=== PATIENT | female | born 1940 ===

== ENCOUNTER 2017-12-22 19:35 | Emergency (ER) | payer SELFPAY ==
[2017-12-22 19:36] VITALS: BMI 18.5
[2017-12-22 19:59] VITALS: O2SAT 97
--- NOTE | 2017-12-22 21:41 | ED PDOC ---
HPI: Psych/Substance Abuse Time Seen by Provider: 12/22/17 21:39 Chief Complaint (Nursing): Anxiety Chief Complaint (Provider): Anxiety History Per: Patient Onset/Duration Of Symptoms: Days Current Symptoms Are (Timing): Still Present Additional Complaint(s): 77 y/o female with a PMHx of dementia presents to the ED for psychiatric evaluation. Daughters reports of an increase of separation anxiety. Patient was prescribe Quetiapine by PMD for anxiety. Family is here requesting further evaluation. PMD: Tish Past Medical History Reviewed: Historical Data, Nursing Documentation, Vital Signs Vital Signs: Last Vital Signs Temp 98.1 F 12/22/17 19:58 Pulse 80 12/22/17 19:58 Resp 16 12/22/17 19:58 BP 154/74 H 12/22/17 19:58 Pulse Ox 97 12/22/17 19:58 - Medical History PMH: Dementia, HTN, Hypothyroidism - Surgical History Surgical History: No Surg Hx - Family History Family History: States: Unknown Family Hx - Home Medications Home Medications: Ambulatory Orders Medication Instructions Recorded Levothyroxine [Synthroid] 50 mcg PO DAILY 03/29/17 Telmisartan [Telmisartan] 80 mg PO DAILY 03/29/17 Docusate [Colace] 100 mg PO DAILY #7 cap 03/30/17 Famotidine [Pepcid] 20 mg PO BID #20 tab 03/30/17 Omeprazole 20 mg PO DAILY #30 capsule. 03/30/17 Cephalexin [Keflex] 500 mg PO TID #15 capsule 12/22/17 - Allergies Allergies/Adverse Reactions: Allergies Allergy/AdvReac Type Severity Reaction Status Date / Time No Known Allergies Allergy Verified 03/29/17 20:37 Review of Systems ROS Statement: Except As Marked, All Systems Reviewed And Found Negative Psych: Positive for: Other (Psychiatric evaluation) Physical Exam - Reviewed Nursing Documentation Reviewed: Yes Vital Signs Reviewed: Yes - Physical Exam Appears: Positive for: No Acute Distress (but tearful) Head Exam: Positive for: ATRAUMATIC Skin: Positive for: Normal Color, Warm Eye Exam: Positive for: Normal appearance Neck: Positive for: Normal, Painless ROM Cardiovascular/Chest: Negative for: Bradycardia, Tachycardia Respiratory: Negative for: Accessory Muscle Use, Respiratory Distress Extremity: Positive for: Normal ROM. Negative for: Deformity Neurologic/Psych: Positive for: Alert, Oriented. Negative for: Motor/Sensory Deficits - Laboratory Results Result Diagrams: 12/22/17 22:13 12/22/17 22:13 - ECG O2 Sat by Pulse Oximetry: 97 (RA) Pulse Ox Interpretation: Normal - Progress ED Course And Treament: ekg: nsr 81 bpm; no ectopy no acute chnages cxr: no acute disease Seen by crisis d/w Dr. Griffith Diagnosis Dementia d/c home with oupatient follow up arranged Medical Decision Making Medical Decision Making: Time: 2125 Plan: -- EKG -- CMP -- CBC with differentials -- CXR (PA&LAT) -- Urine Culture -- EKG Documentation -- Urinalysis Scribe Attestation: Documented by Aiden Diego, acting as a scribe for Juan Carlos Garcia PA-C. Provider Scribe Attestation: All medical record entries made by the Scribe were at my direction and personally dictated by me. I have reviewed the chart and agree that the record accurately reflects my personal performance of the history, physical exam, medical decision making, and the department course for this patient. I have also personally directed, reviewed, and agree with the discharge instructions and disposition. Disposition - Clinical Impression Clinical Impression: Anxiety, UTI (urinary tract infection) - Patient ED Disposition Is Patient to be Admitted: No - Disposition Disposition: Routine/Home Disposition Time: 23:33 Condition: FAIR Prescriptions: Cephalexin [Keflex] 500 mg PO TID #15 capsule Instructions: Dementia (Including Alzheimer Disease), Urinary Tract Infection, Adult (DC) Print Language: YORUBA
[2017-12-22 22:31] LABS: SQUAMOUS EPITHIAL 1 /hpf (0-5); URINE BACTERIA MOD (<OCC); URINE BILIRUBIN NEGATIVE (NEGATIVE); URINE BLOOD SMALL (NEGATIVE); URINE CLARITY CLOUDY (Clear); URINE COLOR YELLOW (YELLOW); URINE GLUCOSE (UA) NEG (Normal); URINE HYALINE CAST 0-2 /hpf (0-2); URINE LEUKOCYTE ESTERASE SMALL Leu/uL (Negative); URINE PROTEIN NEGATIVE (NEGATIVE); URINE UROBILINOGEN 0.2-1.0 mg/dL (0.2-1.0)
[2017-12-22 22:35] LABS: ALB/GLOB RATIO 1.3 (1.0-2.1); ALBUMIN 4.5 g/dL (3.5-5.0); ALT/SGPT 24 U/L (9-52); AST/SGOT 31 U/L (14-36); BLOOD UREA NITROGEN 23 mg/dl (7-17); GFR AFRICAN-AMERICAN > 60; GFR NON-AFRICAN AMERICAN > 60
[2017-12-22 22:39] LABS: BASO # 0.1 K/uL (0.0-0.2); BASO % 0.6 % (0.0-2.0); EOS % 0.5 % (0.0-4.0); HEMOGLOBIN 12.5 g/dL (12.0-16.0); LYMPH # 2.6 K/uL (1.0-4.3); LYMPH % 30.9 % (20.0-40.0); MEAN CELL VOLUME 80.1 fl (81.0-99.0); MEAN CORPUSCULAR HEMOGLOBIN 26.2 pg (27.0-31.0); MEAN CORPUSCULAR HGB CONC 32.8 g/dL (33.0-37.0); MEAN PLATELET VOLUME 7.8 fl (7.2-11.7); MONO # 0.9 K/uL (0.0-0.8); MONO % 10.3 % (0.0-10.0); NEUT # 4.9 K/uL (1.8-7.0); NEUT % 57.7 % (50.0-75.0); RBC 4.75 Mil/uL (3.80-5.20); RED CELL DISTRIBUTION WIDTH 13.6 % (11.5-14.5); WHITE BLOOD COUNT 8.5 K/uL (4.8-10.8)
[2017-12-22 23:38] VITALS: BP 135/71; PULSE 77; RESP 15; TEMP 98.5
--- NOTE | 2017-12-23 08:55 | RAD ---
HISTORY: COMPARISON: 03/29/2017. TECHNIQUE: Chest PA and lateral FINDINGS: LINES AND TUBES: None. LUNG AND PLEURA: The lungs are well inflated and clear. No pleural effusion or pneumothorax. HEART AND MEDIASTINUM: The heart is not enlarged. The hilar and mediastinal contours are within normal limits. SKELETAL STRUCTURES: The bony structures are within normal limits for the patient's age. VISUALIZED UPPER ABDOMEN: Normal. OTHER FINDINGS: None. IMPRESSION: No active pulmonary disease.
--- NOTE | 2017-12-23 09:07 | CARD ---
APPROVED REPORT Date of service: 12/22/2017 EKG Measurement Heart [id number] CT [id number] <Conclusion> Normal sinus rhythm Normal ECG
== END 2017-12-22 23:39 | disposition home or self-care (01) ==
LOC: H.ER 19:35
DX: F41.9 Anxiety disorder, unspecified (principal); N39.0 Urinary tract infection, site not specified; E03.9 Hypothyroidism, unspecified; F03.90 Unspecified dementia, unspecified severity, without behavioral disturbance, psychotic disturbance, mood disturbance, and anxiety; I10 Essential (primary) hypertension

== ENCOUNTER 2017-12-30 14:44 | Inpatient (IN) | payer MEDICAID, SELFPAY ==
[2017-12-30 14:44] VITALS: BMI 18.5
--- NOTE | 2017-12-30 15:37 | ED PDOC ---
HPI: Altered Mental Status Time Seen by Provider: 12/30/17 15:11 Chief Complaint (Nursing): Altered Mental Status Chief Complaint (Provider): Altered Mental Status History Per: Family (daughter, due to pt's dementia) Onset/Duration Of Symptoms: Days (x3 weeks) Current Symptoms Are (Timing): Still Present Additional Complaint(s): 77 year old female with a hx of dementia presents to the ED with daughter, who now has power of ecotherapist over pt, for evaluation of progressively worsening agitation over the last three weeks. As per daughter, patient was here last week for the same behavior and d/c, but the increased aggressive, what she describes as uncontrollable, behavior prompted another visit today. The daughter states that last night patient was unable to sleep and has intermittent complaints of abdominal pain, but they are not consistent. Currently, patient has no physical complaints. PMD: Tish Past Medical History Reviewed: Historical Data, Nursing Documentation, Vital Signs Vital Signs: Last Vital Signs Temp 98.4 F 12/30/17 15:03 Pulse 77 12/30/17 15:03 Resp 20 12/30/17 15:03 BP 150/79 12/30/17 15:03 Pulse Ox 97 12/30/17 15:03 - Medical History PMH: Dementia, HTN, Hypothyroidism Denies: Diabetes, Hepatitis, HIV, Seizures, Sexually Transmitted Disease - Surgical History Surgical History: No Surg Hx - Family History Family History: States: Unknown Family Hx - Living Arrangements Living Arrangements: With Family - Home Medications Home Medications: Ambulatory Orders Medication Instructions Recorded Levothyroxine [Synthroid] 50 mcg PO DAILY 03/29/17 Telmisartan [Telmisartan] 40 mg PO DAILY 03/29/17 Aspirin [Ecotrin] 81 mg PO DAILY 12/30/17 Mirtazapine [Remeron] 7.5 mg PO HS 12/30/17 Multivitamin [Multi-Vitamin Daily] 1 tab PO MWF 12/30/17 - Allergies Allergies/Adverse Reactions: Allergies Allergy/AdvReac Type Severity Reaction Status Date / Time No Known Allergies Allergy Verified 03/29/17 20:37 Review of Systems ROS Statement: Except As Marked, All Systems Reviewed And Found Negative Psych: Positive for: Other (agitation) Physical Exam - Reviewed Nursing Documentation Reviewed: Yes Vital Signs Reviewed: Yes - Physical Exam Appears: Positive for: Well, No Acute Distress Head Exam: Positive for: ATRAUMATIC, NORMOCEPHALIC Skin: Positive for: Warm, Dry Eye Exam: Positive for: EOMI, PERRL ENT: Positive for: Pharynx Is (clear). Negative for: Pharyngeal Erythema Neck: Positive for: Painless ROM, Supple Cardiovascular/Chest: Positive for: Regular Rate, Rhythm. Negative for: Murmur Respiratory: Positive for: Normal Breath Sounds. Negative for: Respiratory Distress Gastrointestinal/Abdominal: Positive for: Soft Back: Positive for: Normal Inspection. Negative for: Decreased ROM Extremity: Positive for: Normal ROM. Negative for: Deformity Lymphatic: Negative for: Adenopathy Neurologic/Psych: Positive for: Alert. Negative for: Motor/Sensory Deficits - Laboratory Results Result Diagrams: 12/30/17 16:03 12/30/17 16:03 - ECG O2 Sat by Pulse Oximetry: 97 (RA) Pulse Ox Interpretation: Normal Medical Decision Making Medical Decision Making: Time: 1523 Initial Impression: agitation and worsening behavior Ddx includes but is not limited to: r/o UTI from last visit Initial Plan: --EKG --Alcohol serum --CMP --Drug screen --Free T4 --T3 --TSH --Crisis eval --CBC with differential --Accucheck --Urinalysis Medically stable for inpatient psychiatry Evaluated by HONORIO Aden who d/w Dr Marte. Pt to be hospitalized to [facility] for stabilization Scribe Attestation: Documented by Rosalia Arboleda, acting as a scribe for Tanvi Macias MD. Provider Scribe Attestation: All medical record entries made by the Scribe were at my direction and personally dictated by me. I have reviewed the chart and agree that the record accurately reflects my personal performance of the history, physical exam, medical decision making, and the department course for this patient. I have also personally directed, reviewed, and agree with the discharge instructions and disposition. Disposition - Clinical Impression Clinical Impression: Dementia Counseled Patient/Family Regarding: Studies Performed, Diagnosis - Disposition Disposition Time: 17:00 Condition: STABLE - Pt Status Changed To: Hospital Disposition Of: Inpatient - Admit Certification Admit to Inpatient:: After my assessment, the patient will require hospitalization for at least two midnights. This is because of the severity of symptoms shown, intensity of services needed, and/or the medical risk in this patient being treated as an outpatient. - POA Present On Arrival: None
[2017-12-30 16:07] LABS: BASO # 0.1 K/uL (0.0-0.2); BASO % 0.8 % (0.0-2.0); EOS % 0.3 % (0.0-4.0); HEMOGLOBIN 12.3 g/dL (12.0-16.0); LYMPH # 2.2 K/uL (1.0-4.3); LYMPH % 31.9 % (20.0-40.0); MEAN CELL VOLUME 80.8 fl (81.0-99.0); MEAN CORPUSCULAR HEMOGLOBIN 26.2 pg (27.0-31.0); MEAN CORPUSCULAR HGB CONC 32.5 g/dL (33.0-37.0); MEAN PLATELET VOLUME 7.2 fl (7.2-11.7); MONO # 0.6 K/uL (0.0-0.8); MONO % 8.9 % (0.0-10.0); NEUT % 58.1 % (50.0-75.0); RBC 4.69 Mil/uL (3.80-5.20); RED CELL DISTRIBUTION WIDTH 13.8 % (11.5-14.5); WHITE BLOOD COUNT 6.9 K/uL (4.8-10.8)
[2017-12-30 16:37] LABS: ALB/GLOB RATIO 1.3 (1.0-2.1); ALBUMIN 4.6 g/dL (3.5-5.0); ALT/SGPT 26 U/L (9-52); AST/SGOT 34 U/L (14-36); BLOOD UREA NITROGEN 17 mg/dl (7-17); CALCIUM 10.4 mg/dL (8.4-10.2); GFR AFRICAN-AMERICAN > 60; GFR NON-AFRICAN AMERICAN > 60
[2017-12-30 17:03] LABS: T3 0.919 nmol/L (1.49-2.60)
[2017-12-30 17:54] LABS: SQUAMOUS EPITHIAL 2 /hpf (0-5); URINE BACTERIA MOD (<OCC); URINE BILIRUBIN NEGATIVE (NEGATIVE); URINE BLOOD SMALL (NEGATIVE); URINE CLARITY SLIGHTY-CLOUDY (Clear); URINE COLOR YELLOW (YELLOW); URINE GLUCOSE (UA) NEG (Normal); URINE LEUKOCYTE ESTERASE NEG Leu/uL (Negative); URINE PROTEIN NEGATIVE (NEGATIVE); URINE UROBILINOGEN 0.2-1.0 mg/dL (0.2-1.0)
[2017-12-30 18:11] LABS: BARBITURATES, UR NEGATIVE (NEGATIVE); BENZODIAZEPINES, UR NEGATIVE (NEGATIVE); OPIATES, UR NEGATIVE (NEGATIVE); PHENCYCLIDINE, UR NEGATIVE (NEGATIVE)
[2017-12-30 20:00] VITALS: O2SAT 100
[2017-12-30] MEDS ORDERED: Magnesium Hydroxide Susp 30 ml UD PO PRN (20:13)
[2017-12-30] MEDS ORDERED: Bismuth Subsalicylate 262 mg/15 ml Sus (240 ml) PO PRN (20:13)
--- NOTE | 2017-12-30 20:38 | PCM.BM ---
<RubenGurpreet - Last Filed: 12/30/17 20:34> Treatment Plan Problems - Problems identified on initial assessmt Agitated/agressive behavior Date Initiated: 12/30/17 Time Initiated: 20:35 Assessment reference: NA Status: Active Thought Process Date Initiated: 12/30/17 Time Initiated: 20:38 Assessment reference: NA Status: Active Altered Sleep Patterns Date Initiated: 12/30/17 Time Initiated: 20:38 Assessment reference: NA Status: Active Treatment assets and liabiliti Patient Assests: adapts well, cooperative, self-reliant, ADL independent, good support system, negotiates basic needs Patient Liabilities: medical problems - Milieu Protocol Maintain good personal hygiene: every shift Encourage regular showers, every shift Remind patient to perform daily oral care, every shift Assist patient to perform ADL's Maintain personal safety: daily Educate patient to report safety concerns to staff, daily Monitor environment for contraband/sharps Medication safety: Monitor for expected outcome, potential side effects: daily, Assess barriers to learning: daily, Assess readiness for medication education: daily <Mirian Crowley - Last Filed: 01/05/18 08:46> - Diagnosis (1) Dementia with behavioral disturbance Status: Acute Interventions: Medication management, Individual and group therapy, Psychoeducation 01/05/18 08:46 (2) Depressive disorder Status: Acute Interventions: Medication management, Individual and group therapy, Psychoeducation 01/05/18 08:46 <Drew Cifuentes - Last Filed: 01/06/18 12:11> Family Contact Family involvement: Family/SO is involved Family contact: Patient agrees to contact, Family has been contacted by patient , Telephone contact initiated by staff Family contact name: Holli - Daughter/POA Family contacted how many times per week?: 3 Family contact comment: Machine Ironer spoke with pt's daughter and POA (Holli [phone]), to discuss psychosocial history and precursors to admission. As per Holli pt has become increasingly agitated, aggressive, and unpredictable over the last 3 weeks. Holli reported that her mother has begun urinating on herself, not sleeping and suffering from "separation anxiety" when daughters attempt to leave. Holli denied prior psych hx and reported that pt was first diagnosed in 2016 by a neurologist in [place]. Please see psychosocial assessment for additional backgroung from conversation. Holli ended the call by asking that family would like pt to be referred to long-term placement. Machine Ironer discussed Long-term placements and the need for pt to be on a locked unit due to her bx disturbances and wandering. Machine Ironer explained that pt may need to be [place] out of county [place] minutes away and family was agreeable. Machine Ironer also asked that pt get records from past neurologist visit so that a timeline of decompensation can be established. Faxed reported from neurologist was received. - Goals for Treatment Patient goals for treatment: Pt is oriented X1 and is unable to goal set. Patient's family/SO goals for treatment: Pt's family would like pt to be placed in a LT [facility]. Discharge/Continuing Care - Education Needs Education Needs: Family Medication, Family Diagnosis/Disease Process, Family Coping Skills, Family Placement options, Family Community resources, Family Aftercare Safety Plan, Patient Medication, Patient Diagnosis/Disease Process, Patient Coping Skills, Patient Placement options, Patient Community resources, Patient Aftercare Safety Plan - Discharge Discharge Criteria: Tolerates medication w/o severe side effects, Free of agitation, Normal sleep pattern, Reduction of target symptoms Discharge to:: Home, With Family - Treatment Team Participation Discussed with Family/SO: Yes Was Patient/Family/SO present at Treatment Team Meeting: No
--- NOTE | 2017-12-30 21:30 | CP.PCM.CON ---
History of Present Illness - History of Present Illness History of Present Illness: Consult: Family medicine Team - 77 YO pleasant F w/ PMH of HTN, Hypothyroidism, Anxiety, separation anxiety disorder, and dementia has been admitted to [facility] and have been asked to see the patient. - Patients medical chart was reviewed and history was obtained from it since patient is a poor historian secondary to her dementia. Patient has been having repeated episodes of separation anxiety whenever her daughter leaves the house and is not around and becomes increasingly agitated over the past 3 weeks. The patients daughter who brought her to the ER , now has power of compliance attorney over patient. - As per daughter patient has not been sleeping and has been complaining of intermittent abdominal pain, but patients complaints are not consistent. Patient has also seen her PMD recently and has been treated for UTI with keflex. On 12/11 patient also had a UTI for which showed E Coli and was treated with macrobid which was sensitive to bacteria. - Today patient states she is doing great and has no complaints. When asked if she finished her Keflex course, she states she does not know of any UTI she had and is only taking vitamins. Denies any dysuria, abdominal pain, fever, chils, chest pain, SOB, N/V/D. PMH: Dementia, HTN, gastritis PSH: Hyterectomy 2003 FH: FH of Alzheimer in mother SH: was previously living with daughter. No alcohol or tobacco use PMD: Dr. Pozo Past Patient History - Past Social History Smoking Status: Never Smoked - CARDIAC Hx Cardiac Disorders: No Hx Hypertension: Yes - PULMONARY Hx Tuberculosis: No - NEUROLOGICAL HX Cerebrovascular Accident: No Hx Seizures: No - ENDOCRINE/METABOLIC Hx Hypothyroidism: Yes - HEMATOLOGICAL/ONCOLOGICAL Hx Cancer: No Hx Human Immunodeficiency Virus (HIV): No - INTEGUMENTARY Hx Dermatological Problems: No - MUSCULOSKELETAL/RHEUMATOLOGICAL Hx Musculoskeletal Disorders: No - GASTROINTESTINAL Hx Gastrointestinal Disorders: No - GENITOURINARY/GYNECOLOGICAL Hx Sexually Transmitted Disorders: No - PSYCHIATRIC Hx Psychophysiologic Disorder: No Hx Substance Use: No - SURGICAL HISTORY Hx Surgeries: No - ANESTHESIA Hx Anesthesia: No Meds Allergies/Adverse Reactions: Allergies Allergy/AdvReac Type Severity Reaction Status Date / Time No Known Allergies Allergy Verified 03/29/17 20:37 - Medications Medications: Current Medications Acetaminophen (Tylenol 325mg Tab) 650 mg PO Q4 PRN PRN Reason: Pain, moderate (4-7) Al Hydrox/Mg Hydrox/Simethicone (Maalox Plus 30 Ml) 30 ml PO Q4 PRN PRN Reason: Dyspepsia Aspirin (Ecotrin) 81 mg PO DAILY [facility] Bismuth Subsalicylate (Pepto-Bismol) 524 mg PO Q4 PRN PRN Reason: Diarrhea Enoxaparin Sodium (Lovenox) 30 mg SC DAILY [facility] PRN Reason: Protocol Home Med (Telmisartan [Telmisartan]) 40 mg PO DAILY [facility] Levothyroxine Sodium (Synthroid) 50 mcg PO DAILY@0630 [facility] Lorazepam (Ativan) 0.5 mg PO HS PRN PRN Reason: Insomnia Stop: 01/13/18 20:14 Lorazepam (Ativan) 0.5 mg PO Q6 PRN PRN Reason: Anixety/Agitation Stop: 01/13/18 20:14 Last Admin: 12/30/17 21:18 Dose: 0.5 mg Magnesium Hydroxide (Milk Of Magnesia) 30 ml PO HS PRN PRN Reason: Constipation Mirtazapine (Remeron) 7.5 mg PO HS [facility] Last Admin: 12/30/17 21:18 Dose: 7.5 mg Multivitamins/Minerals (Therapeutic-M Tab) 1 tab PO DAILY [facility] Physical Exam - Constitutional Appears: No Acute Distress - Head Exam Head Exam: NORMAL INSPECTION - Eye Exam Eye Exam: EOMI, Normal appearance, PERRL - ENT Exam ENT Exam: Mucous Membranes Moist - Respiratory Exam Respiratory Exam: Clear to Auscultation Bilateral, NORMAL BREATHING PATTERN. absent: Rhonchi, Wheezes - Cardiovascular Exam Cardiovascular Exam: REGULAR RHYTHM, +S1, +S2 - GI/Abdominal Exam GI & Abdominal Exam: Normal Bowel Sounds, Soft. absent: Tenderness - Extremities Exam Extremities exam: Positive for: normal inspection. Negative for: calf tenderness - Back Exam Back exam: absent: CVA tenderness (L), CVA tenderness (R) - Neurological Exam Neurological exam: Alert, CN II-XII Intact, Normal Gait Additional comments: [place] to person however not to place or time - Psychiatric Exam Psychiatric exam: Normal Affect - Skin Skin Exam: Normal Color, Warm Results - Vital Signs Recent Vital Signs: Last Vital Signs Temp 98.6 F 12/30/17 19:59 Pulse 87 12/30/17 19:59 Resp 18 12/30/17 19:59 BP 119/68 12/30/17 19:59 Pulse Ox 100 12/30/17 19:59 - Labs Result Diagrams: 12/30/17 16:03 12/30/17 16:03 Labs: Laboratory Results - last 24 hr 12/30/17 12/30/17 12/30/17 15:55 16:03 16:03 WBC 6.9 RBC 4.69 Hgb 12.3 Hct 37.9 MCV 80.8 L MCH 26.2 L MCHC 32.5 L RDW 13.8 Plt Count 315 MPV 7.2 Neut % (Auto) 58.1 Lymph % (Auto) 31.9 [place] % (Auto) 8.9 Eos % (Auto) 0.3 Baso % (Auto) 0.8 Neut # (Auto) 4.0 Lymph # (Auto) 2.2 [place] # (Auto) 0.6 Eos # (Auto) 0.0 Baso # (Auto) 0.1 Sodium 143 Potassium 5.2 H Chloride 102 Carbon Dioxide 30 Anion Gap 16 BUN 17 Creatinine 0.6 L Est GFR ( Amer) > 60 Est GFR (Non-Af Amer) > 60 POC Glucose (mg/dL) 110 Random Glucose 109 H Calcium 10.4 H Total Bilirubin 0.3 AST 34 ALT 26 Alkaline Phosphatase 59 Total Protein 8.0 Albumin 4.6 Globulin 3.5 Albumin/Globulin Ratio 1.3 Free T4 Total T3 0.919 L TSH 3rd Generation 1.58 Urine Color Urine Clarity Urine pH Ur Specific [place] Urine Protein Urine Glucose (UA) Urine Ketones Urine Blood Urine Nitrate Urine Bilirubin Urine Urobilinogen Ur Leukocyte Esterase Urine RBC (Auto) Urine Microscopic WBC Ur Squamous Epith Cells Urine Bacteria Urine Opiates Screen Urine Methadone Screen Ur Barbiturates Screen Ur Phencyclidine Scrn Ur Amphetamines Screen U Benzodiazepines Scrn U Oth Cocaine Metabols U Cannabinoids Screen Alcohol, Quantitative < 10 12/30/17 12/30/17 12/30/17 16:03 17:40 17:40 WBC RBC Hgb Hct MCV MCH MCHC RDW Plt Count MPV Neut % (Auto) Lymph % (Auto) [place] % (Auto) Eos % (Auto) Baso % (Auto) Neut # (Auto) Lymph # (Auto) [place] # (Auto) Eos # (Auto) Baso # (Auto) Sodium Potassium Chloride Carbon Dioxide Anion Gap BUN Creatinine Est GFR ( Amer) Est GFR (Non-Af Amer) POC Glucose (mg/dL) Random Glucose Calcium Total Bilirubin AST ALT Alkaline Phosphatase Total Protein Albumin Globulin Albumin/Globulin Ratio Free T4 1.42 Total T3 TSH 3rd Generation Urine Color Yellow Urine Clarity Slighty-cloudy Urine pH 6.0 Ur Specific [place] 1.013 Urine Protein Negative Urine Glucose (UA) Neg Urine Ketones Negative Urine Blood Small Urine Nitrate Negative Urine Bilirubin Negative Urine Urobilinogen 0.2-1.0 Ur Leukocyte Esterase Neg Urine RBC (Auto) 5 H Urine Microscopic WBC 3 Ur Squamous Epith Cells 2 Urine Bacteria Mod H Urine Opiates Screen Negative Urine Methadone Screen Negative Ur Barbiturates Screen Negative Ur Phencyclidine Scrn Negative Ur Amphetamines Screen Negative U Benzodiazepines Scrn Negative U Oth Cocaine Metabols Negative U Cannabinoids Screen Negative Alcohol, Quantitative Assessment & Plan - Assessment and Plan (Free Text) Assessment: 77 YO pleasant F w/ PMH of HTN, Hypothyroidism, Anxiety, separation anxiety disorder, and dementia 1) HTN - Losartan 50 mg - F/U with lipid panal and HBA1c 2) Hypothyroidism: Synthroid 50 mcg - TSH: 1.58, T3:.91, Free T4: 1.42 3) Hemolyzed blood work - Repeat and follow up : Hemolyzed K+: 5.2 4) Reccurent UTI - Recently treated UTI - U/A: Mod bacteria, Nitate -ve, leucocyte esterase -ve - Repeat Urine Culture and sensitivity - Currently asymptomatic as per patient 5) DVT prophylaxis - Lovenox 30 SC
[2017-12-31 06:59] LABS: IRON 79 ug/dL (37-170)
[2017-12-31 07:06] LABS: LDL CHOLESTEROL 109 mg/dL (0-129)
[2017-12-31 07:08] LABS: % IRON SATURATION 24 % (20-55); TOTAL IRON BINDING CAPACITY 325 ug/dL (250-450)
[2017-12-31 07:19] LABS: ALB/GLOB RATIO 1.3 (1.0-2.1); ALBUMIN 4.1 g/dL (3.5-5.0); ALT/SGPT 18 U/L (9-52); AST/SGOT 30 U/L (14-36); BLOOD UREA NITROGEN 25 mg/dl (7-17); CALCIUM 9.7 mg/dL (8.4-10.2); GFR AFRICAN-AMERICAN > 60; GFR NON-AFRICAN AMERICAN > 60; HDL CHOLESTEROL 59 MG/DL (30-70)
--- NOTE | 2017-12-31 07:22 | CARD ---
APPROVED REPORT Date of service: 12/30/2017 <Conclusion> Normal sinus rhythm Normal ECG
[2017-12-31 07:57] LABS: T4 7.87 ug/dl (5.5-11.0)
[2017-12-31 08:16] LABS: FERRITIN 36.9 ng/Ml (11.1-264.0)
[2017-12-31] MEDS: Levothyroxine 50 MCG TAB PO SCH (08:21)
[2017-12-31] MEDS: Multivitamin With Minerals Tab PO SCH (08:22)
[2017-12-31] MEDS ORDERED: TELMISARTAN 40 MG PO SCH (09:00)
[2017-12-31] MEDS ORDERED: Enoxaparin 30 mg Syringe SC SCH (09:00)
[2017-12-31] MEDS ORDERED: Patient's Own Med (Multivitamin [Multi-Vitamin Daily] 1 TAB) PO SCH (09:00)
--- NOTE | 2017-12-31 16:29 | PCM.PSYCH ---
Initial Psychiatric Evaluation - Initial Psychiatric Evaluation Patient's Reaction to Hospitalization: daughter has poa daughter History of Present Illness and Precipitating Events: pt. reports that came to hospital to do exercise and that these exercises were completed, denies having any known issues at home, reports cleans house and cooks. denies being angry or aggressive. pt denies having any issues with memory. pt. appears to be a poor historian. er notes as well as admitting rn notes reviewed and noted below. ER notes reveal: 77 year old female with a hx of dementia presents to the ED with daughter, who now has power of immigration attorney over pt, for evaluation of progressively worsening agitation over the last three weeks. As per daughter, patient was here last week for the same behavior and d/c, but the increased aggressive, what she describes as uncontrollable, behavior prompted another visit today. The daughter states that last night patient was unable to sleep and has intermittent complaints of abdominal pain, but they are not consistent. Currently, patient has no physical complaints. 3ns primary rn note ADMISSION NOTE: Received a 77y/o female from the Emergency Room on a stretcher accompanied by her two daughter and ER orthodontic laboratory technician.Pt is oriented only to herself pt thinks that she is her country during the interview "in [facility]" pt unable to state date, time and place. Pt has Power of immigration attorney with her two daughter on it Holli [phone] and Nohemi Heredia . Pt is South Korean speaking only, japanese interpreter was used even though pt has POA so Pt can understand the interview and for unit orientation of the pt, Molly [id number] and Noemí [id number]. Pt was brought in to the emergency by daughter due to significant decline and agitated behavior as per daughter. pt also becoming aggressive towards family member and fearful of being alone. "she is progressively declining but the last 3weeks we couldn't handle her" as per daughter. pt daughter also reporting that pt has poor sleep "she hasn't slept for 36hrs now". pt has a family history of depression and dementia pt was never really diagnosed as per daughter. this is the pts first psychiatric admission, pt is seeing Dr. Ruiz at the [facility]. Pt daughter reports that pt has a medical history of HTN, Hypothyroidism, and Hx. of kidney stones, DM but it was being controlled with diet. pt daughter also report that last week her mother just finished her antibiotic treatment for urinary tract infection. Pt denies any A/V hallucination, denies delusions, denies SI or intent. pt belongings are checked for contraband, nothing was found. Pt initial V/S BP:135/ 75 VT:85 O2SAT 99% @ room air RR:18 T:97.8. Dr Marte was notified about pt admission orders are given, and Dr. Renee called for medical consult [id number] Pt was seen by Dr. Renee. Pt was oriented to the unit and made comfortable at room 307-2. will continue to monitor. records received fron dr Belinda Bolivar MD neurologist saw pt [id number] with impression being Memory change recommendation included brain mri scan and new medications were discussed and deferred Current Medications: Active Medications Generic Name Dose Route Start Last Admin Trade Name Freq PRN Reason Stop Dose Admin Acetaminophen 650 mg 12/30/17 20:13 Tylenol 325mg Tab PO Q4 PRN Pain, moderate (4-7) Al Hydrox/Mg Hydrox/Simethicone 30 ml 12/30/17 20:13 Maalox Plus 30 Ml PO Q4 PRN Dyspepsia Aspirin 81 mg 12/31/17 09:00 12/31/17 08:21 Ecotrin PO 81 mg DAILY [facility] Administration Bismuth Subsalicylate 524 mg 12/30/17 20:13 Pepto-Bismol PO Q4 PRN Diarrhea Enoxaparin Sodium 30 mg 12/31/17 09:00 12/31/17 08:21 Lovenox SC 30 mg DAILY [facility] Administration Protocol Levothyroxine Sodium 50 mcg 12/31/17 06:30 12/31/17 08:21 Synthroid PO 50 mcg DAILY@0630 [facility] Administration Lorazepam 0.5 mg 12/30/17 20:13 Ativan PO 01/13/18 20:14 HS PRN Insomnia Lorazepam 0.5 mg 12/30/17 20:13 12/30/17 21:18 Ativan PO 01/13/18 20:14 0.5 mg Q6 PRN Administration Anixety/Agitation Losartan Potassium 50 mg 12/31/17 09:00 12/31/17 08:20 Cozaar PO 50 mg DAILY [facility] Administration Magnesium Hydroxide 30 ml 12/30/17 20:13 Milk Of Magnesia PO HS PRN Constipation Mirtazapine 7.5 mg 12/30/17 22:00 12/30/17 21:18 Remeron PO 7.5 mg HS [facility] Administration Multivitamins/Minerals 1 tab 12/31/17 09:00 12/31/17 08:22 Therapeutic-M Tab PO 1 tab DAILY [facility] Administration Past Psychiatric History - Past Psychiatric History Prior Professional Help: notes reveal this is pt.'s first admission Prior Psychiatric Treatment: pt. treated by pmd in [facility] Pertinent Medical Hx (Current Medical&Sleep Prob, Allergies): Allergies Allergy/AdvReac Type Severity Reaction Status Date / Time No Known Allergies Allergy Verified 03/29/17 20:37 Levothyroxine [Synthroid] 50 mcg PO DAILY 03/29/17 Telmisartan [Telmisartan] 40 mg PO DAILY 03/29/17 Aspirin [Ecotrin] 81 mg PO DAILY 12/30/17 Mirtazapine [Remeron] 7.5 mg PO HS 12/30/17 Multivitamin [Multi-Vitamin Daily] 1 tab PO MWF 12/30/17 Review of Systems - Psychiatric Psychiatric: Abnormal Sleep Pattern, Anxiety, Confusion, Irritability Additional comments: reported aggression towards family, fear of being alone Mental Status Examination - Personal Presentation Personal Presentation: Looks stated age - Affect Affect: Constricted - Motor Activity Motor Activity: Calm, Psychomotor Retardation - Reliability in Providing Information Reliability in Providing Information: Poor, due to cognitve impairment - Speech Speech: Disorganized - Mood Mood: Anxious - Cognitive Functions Orientation: Person, Place Sensorium: Alert Attention/Concentration: Easily distracted Judgement: Imparied, as evidence by: Other Memory: Recent impaired, as evidence by: Inability to recall events of the day - Risk Risk: Diminished functioning Additional comments: self care - Strength & Assets Inventory Strength & Assets Inventory: Family support (pt has poa two daughters ) - Limitations Limitations: Decreased memory, recent DSM 5 DX - DSM 5 DSM 5 Diagnosis: dementia with behavioral disturbances depression insomnia - Recommended/Plan of Treatment Treatment Recommendations and Plan of Treatment: inpt adm per attending vital signs clinical observation per protocol and per clinical status prns per unit protocol hospitalist consult start pt on remeron (mirtazepine) 7.5mg po hs psychology consult dr delatorre dementia screening access to prn samoan speaking staff and or use of translation services discharge planning in progress Projected ELOS: 7-10 days Prognosis: guarded Discharge Plan and Discharge Criteria: safety - Smoking Cessation Smoking Cessation Initiated: No Reason for not providing: pt defers
[2018-01-01] MEDS: Levothyroxine 50 MCG TAB PO SCH (06:18)
[2018-01-01] MEDS: Multivitamin With Minerals Tab PO SCH (08:48)
--- NOTE | 2018-01-01 17:19 | PCM.PYCHPN ---
Psychiatric Progress Note - Psychiatric Progress Note Patient seen today, length of contact: chart reviewed case discussed with team Patient Chief Complaint: sad does not know why they asked to leave her home to live with another sister pt initially believed she was in [facility] then spoke of being in [place] reminded is in [place]. pt is seen seated in milieu tearful at times does not recall why she was brought here denies known issues at home or family. Problems Identified/Issues Discussed: alteration in mood alteration in self care alteration in cognition Medical Problems: per chart Diagnostic Results: continues to be sad crying at j carlos DSM 5 Symptoms Update: alteration in mood tearful sad Medication Change: Yes (increase mirtazepine to 15mg po HS) Medical Record Reviewed: Yes Consults ordered or reviewed: pt seen by hospitalist Mental Status Examination - Cognitive Function Orientation: Person, Place - Mood Mood: Depressed, Anxious - Affect Affect: Constricted - Homicidal Ideation Homicidal Ideation: No Goal/Treatment Plan - Goal/Treatment Plan Progress Toward Problem(s) and Goals/Treatment Plan: inpt milieu therapy vital signs clinical observation per protocol and per clinical status prns per unit protocol hospitalist consult start pt on remeron (mirtazepine) 15 mg po hs psychology consult dr delatorre dementia screening access to prn italian speaking staff and or use of translation services discharge planning in progress Estimated Date of D/C: 01/06/18 - Smoking Cessation Smoking Cessation Initiated: No Reason for not providing: pt defers
[2018-01-02] MEDS: Levothyroxine 50 MCG TAB PO SCH (08:58)
[2018-01-02] MEDS: Multivitamin With Minerals Tab PO SCH (08:58)
--- NOTE | 2018-01-02 13:07 | CP.PCM.CON ---
History of Present Illness - History of Present Illness History of Present Illness: PT is a 77 year old female admitted to [facility] and referred to the marketing copywriter for evaluation. Patient administered the Dementia Rating scale. Deficits in Attention, Conceptulation, Memory, and Initiation were evident. Pt's Construction skills fell within normal limits. PT positive for Confabulation and verbalizations inconsistent with the questions at hand. Overall 100 Memory 12 (Deficient) construction 4 conceptualization 20> Initiation 28> Attention 26> Significant deficits noted on this evaluation Past Patient History - Past Social History Smoking Status: Never Smoked - CARDIAC Hx Cardiac Disorders: No Hx Hypertension: Yes - PULMONARY Hx Tuberculosis: No - NEUROLOGICAL HX Cerebrovascular Accident: No Hx Seizures: No - ENDOCRINE/METABOLIC Hx Hypothyroidism: Yes - HEMATOLOGICAL/ONCOLOGICAL Hx Cancer: No Hx Human Immunodeficiency Virus (HIV): No - INTEGUMENTARY Hx Dermatological Problems: No - MUSCULOSKELETAL/RHEUMATOLOGICAL Hx Musculoskeletal Disorders: No - GASTROINTESTINAL Hx Gastrointestinal Disorders: No - GENITOURINARY/GYNECOLOGICAL Hx Sexually Transmitted Disorders: No - PSYCHIATRIC Hx Psychophysiologic Disorder: No Hx Substance Use: No - SURGICAL HISTORY Hx Surgeries: No - ANESTHESIA Hx Anesthesia: No Meds Allergies/Adverse Reactions: Allergies Allergy/AdvReac Type Severity Reaction Status Date / Time No Known Allergies Allergy Verified 03/29/17 20:37 - Medications Medications: Current Medications Acetaminophen (Tylenol 325mg Tab) 650 mg PO Q4 PRN PRN Reason: Pain, moderate (4-7) Al Hydrox/Mg Hydrox/Simethicone (Maalox Plus 30 Ml) 30 ml PO Q4 PRN PRN Reason: Dyspepsia Aspirin (Ecotrin) 81 mg PO DAILY [facility] Last Admin: 01/02/18 08:58 Dose: 81 mg Bismuth Subsalicylate (Pepto-Bismol) 524 mg PO Q4 PRN PRN Reason: Diarrhea Levothyroxine Sodium (Synthroid) 50 mcg PO DAILY@0630 [facility] Last Admin: 01/02/18 08:58 Dose: 50 mcg Lorazepam (Ativan) 0.5 mg PO HS PRN PRN Reason: Insomnia Stop: 01/13/18 20:14 Last Admin: 12/31/17 22:09 Dose: 0.5 mg Lorazepam (Ativan) 0.5 mg PO Q6 PRN PRN Reason: Anixety/Agitation Stop: 01/13/18 20:14 Last Admin: 01/01/18 23:18 Dose: 0.5 mg Losartan Potassium (Cozaar) 50 mg PO DAILY [facility] Last Admin: 01/02/18 08:58 Dose: 50 mg Magnesium Hydroxide (Milk Of Magnesia) 30 ml PO HS PRN PRN Reason: Constipation Mirtazapine (Remeron) 15 mg PO HS [facility] Last Admin: 01/01/18 21:04 Dose: 15 mg Multivitamins/Minerals (Therapeutic-M Tab) 1 tab PO DAILY [facility] Last Admin: 01/02/18 08:58 Dose: 1 tab Results - Vital Signs Recent Vital Signs: Last Vital Signs Temp 97.7 F 01/02/18 06:00 Pulse 65 01/02/18 08:58 Resp 18 01/02/18 06:00 BP 120/69 01/02/18 08:58 Pulse Ox 100 12/30/17 19:59 - Labs Result Diagrams: 12/30/17 16:03 12/31/17 05:45
--- NOTE | 2018-01-02 16:07 | CP.PCM.PN ---
Subjective - Date & Time of Evaluation Date of Evaluation: 01/02/18 Time of Evaluation: 10:00 - Subjective Subjective: Patient seen and examined at bedside. Reports she feels well. Denies dysuria, fevers, chills, chest pain or dizziness. Denies urinary frequency. Objective - Vital Signs/Intake and Output Vital Signs (last 24 hours): Temp Pulse Resp BP Pulse Ox 97.7 F 65 18 120/69 100 01/02/18 06:00 01/02/18 08:58 01/02/18 06:00 01/02/18 08:58 12/30/17 19:59 - Medications Medications: Current Medications Acetaminophen (Tylenol 325mg Tab) 650 mg PO Q4 PRN PRN Reason: Pain, moderate (4-7) Al Hydrox/Mg Hydrox/Simethicone (Maalox Plus 30 Ml) 30 ml PO Q4 PRN PRN Reason: Dyspepsia Aspirin (Ecotrin) 81 mg PO DAILY [facility] Last Admin: 01/02/18 08:58 Dose: 81 mg Bismuth Subsalicylate (Pepto-Bismol) 524 mg PO Q4 PRN PRN Reason: Diarrhea Levothyroxine Sodium (Synthroid) 50 mcg PO DAILY@0630 [facility] Last Admin: 01/02/18 08:58 Dose: 50 mcg Lorazepam (Ativan) 0.5 mg PO HS PRN PRN Reason: Insomnia Stop: 01/13/18 20:14 Last Admin: 12/31/17 22:09 Dose: 0.5 mg Lorazepam (Ativan) 0.5 mg PO Q6 PRN PRN Reason: Anixety/Agitation Stop: 01/13/18 20:14 Last Admin: 01/02/18 15:40 Dose: 0.5 mg Losartan Potassium (Cozaar) 50 mg PO DAILY [facility] Last Admin: 01/02/18 08:58 Dose: 50 mg Magnesium Hydroxide (Milk Of Magnesia) 30 ml PO HS PRN PRN Reason: Constipation Mirtazapine (Remeron) 15 mg PO HS [facility] Last Admin: 01/01/18 21:04 Dose: 15 mg Multivitamins/Minerals (Therapeutic-M Tab) 1 tab PO DAILY [facility] Last Admin: 01/02/18 08:58 Dose: 1 tab - Labs Labs: 12/30/17 16:03 12/31/17 05:45 - Constitutional Appears: No Acute Distress - Head Exam Head Exam: ATRAUMATIC, NORMOCEPHALIC - Eye Exam Eye Exam: EOMI Pupil Exam: PERRL - ENT Exam ENT Exam: Mucous Membranes Moist - Neck Exam Neck Exam: Full ROM - Respiratory Exam Respiratory Exam: Clear to Ausculation Bilateral, NORMAL BREATHING PATTERN. absent: Rales, Rhonchi - Cardiovascular Exam Cardiovascular Exam: REGULAR RHYTHM, +S1, +S2 - GI/Abdominal Exam GI & Abdominal Exam: Soft, Normal Bowel Sounds. absent: Tenderness - Extremities Exam Extremities Exam: Full ROM. absent: Pedal Edema - Back Exam Back Exam: absent: CVA tenderness (L), CVA tenderness (R) - Neurological Exam Neurological Exam: Alert, Awake, CN II-XII Intact, Normal Gait - Psychiatric Exam Psychiatric exam: Normal Affect, Normal Mood - Skin Skin Exam: Dry, Intact, Warm Assessment and Plan - Assessment and Plan (Free Text) Assessment: 77 yr old F admitted for dementia with behavioral disturbances/depression and insomnia with PMHx of HTN, Hypothyroidism, Anxiety, separation anxiety disorder , and dementia. 1) Hypertension -chronic, controlled - continue home medication: Losartan 50 mg PO QD - 12/31/17: lipid panel: triglycerides 66, chol 207, LDL 109, HDL 59,, HbA1c 6.2 2) Hypothyroidism -chronic, controlled -continue home medications: Synthroid 50 mcg PO QD -TSH: 1.58, T3:.91, Free T4: 1.42 3) Dementia with behavioral disturbances, Depression, Insomnia -acute on chronic -management per psych team: patient started on Mirtazepine 15mg PO QHS -Lorazepam 0.5 mg PO QHS PRN insomnia, Lorazepam 0.5 PO Q6 PRN anxiety/agitation 4) Hemolyzed blood work - resolved, CMP 12/31/17 wnl 5) Hx Reccurent UTI - asymptomatic, recently treated UTI - 12/30/17: U/A: Mod bacteria, negative for Nitate, negative for leukocyte esterase - 12/31/17: gram negative shyanne 50k-100k -no antibotics at this time, will monitor for signs or symptoms 6) DVT prophylaxis - SCD's, patient is ambulating
--- NOTE | 2018-01-02 17:35 | PCM.PYCHPN ---
Psychiatric Progress Note - Psychiatric Progress Note Patient seen today, length of contact: chart reviewed case discussed with team Patient Chief Complaint: pt was reportedly anxious today not responding to verbal de escalation prn lorazepam administered with increased relaxation. pt was seen by dr. delatorre and report indicates pt. with significant cognitive impairment. pt. seen by family medicine today. pt. nurse practitioner per diem per records discussed status and potential discharge planning with patient's daughter. pt. adherent with tx.. somewhat keeps to self at times, tearful at times but is redirectable and supported. i Problems Identified/Issues Discussed: alteration in mood alteration in self care alteration in cognition Medical Problems: per chart Diagnostic Results: continues to be sad crying at j carlos DSM 5 Symptoms Update: depressed tearful anxious received prn anxiolytic Medication Change: No Medical Record Reviewed: Yes Consults ordered or reviewed: pt seen by family medicine Mental Status Examination - Cognitive Function Orientation: Person, Place Attention: Poor Concentration: Poor Association: Loose Fund of Knowledge: Poor Decription of patient's judgement and insights: impaired - Mood Mood: Depressed, Anxious - Affect Affect: Constricted - Speech Speech: Soft Additional comments: Speaks Mostly Romansh - Homicidal Ideation Homicidal Ideation: No Goal/Treatment Plan - Goal/Treatment Plan Need for Continued Stay: Severe functional impairment Progress Toward Problem(s) and Goals/Treatment Plan: inpt milieu therapy vital signs clinical observation per protocol and per clinical status prns per unit protocol pt seen by family medicine psychology consult dr delatorre appreciated access to prn vincentian speaking staff and or use of translation services discharge planning in progress Estimated Date of D/C: 01/06/18 - Smoking Cessation Smoking Cessation Initiated: No Reason for not providing: deferred
[2018-01-02] MEDS: Alum-Mag Hydrox-Simethicone Susp (30 mL) PO PRN (17:42)
[2018-01-03] MEDS: Levothyroxine 50 MCG TAB PO SCH (06:32)
[2018-01-03 07:20] LABS: BASO # 0.1 K/uL (0.0-0.2); BASO % 1.1 % (0.0-2.0); EOS # 0.1 K/uL (0.0-0.7); EOS % 1.3 % (0.0-4.0); HEMOGLOBIN 11.1 g/dL (12.0-16.0); LYMPH # 2.5 K/uL (1.0-4.3); LYMPH % 40.2 % (20.0-40.0); MEAN CELL VOLUME 81.4 fl (81.0-99.0); MEAN CORPUSCULAR HEMOGLOBIN 26.2 pg (27.0-31.0); MEAN CORPUSCULAR HGB CONC 32.2 g/dL (33.0-37.0); MEAN PLATELET VOLUME 7.7 fl (7.2-11.7); MONO # 0.7 K/uL (0.0-0.8); MONO % 11.5 % (0.0-10.0); NEUT # 2.8 K/uL (1.8-7.0); NEUT % 45.9 % (50.0-75.0); NRBC % 0.1 % (0.0-0.0); RBC 4.24 Mil/uL (3.80-5.20); RED CELL DISTRIBUTION WIDTH 13.7 % (11.5-14.5); WHITE BLOOD COUNT 6.1 K/uL (4.8-10.8)
[2018-01-03 07:32] LABS: BLOOD UREA NITROGEN 27 mg/dl (7-17); CALCIUM 8.6 mg/dL (8.4-10.2); GFR AFRICAN-AMERICAN > 60; GFR NON-AFRICAN AMERICAN > 60
[2018-01-03] MEDS: Multivitamin With Minerals Tab PO SCH (08:33)
--- NOTE | 2018-01-03 12:14 | PCM.PYCHPN ---
Psychiatric Progress Note - Psychiatric Progress Note Patient seen today, length of contact: chart reviewed case discussed with team Patient Chief Complaint: pt. seen seated in milieu, appears to be reading a book, juanita thakur staff ( this sign writer letterer or painter), staff report pt somewhat calmer, continues to not be aware of why was admitted, staff report pt. has been adherent with treatment. reportedly family visited yesterday, pt. reportedly bathed. Problems Identified/Issues Discussed: alteration in mood alteration in self care alteration in cognition Medical Problems: per chart Diagnostic Results: pt anxious at times appears to be afraid to be alone DSM 5 Symptoms Update: improving mood, continues to be confused Medication Change: No Medical Record Reviewed: Yes Consults ordered or reviewed: [facility] Mental Status Examination - Cognitive Function Orientation: Person, Place Attention: Poor Concentration: Poor Association: Loose Fund of Knowledge: Poor Decription of patient's judgement and insights: impaired - Mood Mood: Depressed, Anxious - Affect Affect: Constricted - Speech Speech: Soft - Homicidal Ideation Homicidal Ideation: No Goal/Treatment Plan - Goal/Treatment Plan Need for Continued Stay: Remain at risks for inpatient hospitalization, Severe functional impairment Progress Toward Problem(s) and Goals/Treatment Plan: inpt milieu therapy vital signs clinical observation per protocol and per clinical status prns per unit protocol pt seen by family medicine psychology consult dr delatorre appreciated access to prn bulgarian speaking staff and or use of translation services discharge planning in progress Estimated Date of D/C: 01/06/18 - Smoking Cessation Smoking Cessation Initiated: No Reason for not providing: defers
[2018-01-04] MEDS: Levothyroxine 50 MCG TAB PO SCH (06:05)
[2018-01-04] MEDS: Multivitamin With Minerals Tab PO SCH (09:45)
--- NOTE | 2018-01-04 19:04 | PCM.PYCHPN ---
Psychiatric Progress Note - Psychiatric Progress Note Patient seen today, length of contact: chart reviewed case discussed with team Patient Chief Complaint: pt. seen seated in milieu, appears to be reading a book, juanita thakur staff ( this film writer), staff report pt somewhat calmer, continues to not be aware of why was admitted, staff report pt. has been adherent with treatment. reportedly family visited yesterday, pt. reportedly bathed. Problems Identified/Issues Discussed: alteration in mood alteration in self care alteration in cognition Medical Problems: per chart Diagnostic Results: pt anxious at times appears to be afraid to be alone DSM 5 Symptoms Update: confused baseline mood in terms of depression anxiety Medication Change: Yes (start aricept 5mg po 5pm and namenda 5mg po am) Medical Record Reviewed: Yes Consults ordered or reviewed: pt seen by [facility] practice Mental Status Examination - Cognitive Function Orientation: Person, Place Attention: Poor Concentration: Poor Association: Loose Fund of Knowledge: WNL Decription of patient's judgement and insights: impaired - Mood Mood: Depressed, Anxious - Affect Affect: Constricted - Speech Speech: Soft - Formal Thought Process Formal Thought Process: Loosening of associations, Circumstantial - Homicidal Ideation Homicidal Ideation: No Goal/Treatment Plan - Goal/Treatment Plan Need for Continued Stay: Remain at risks for inpatient hospitalization, Severe functional impairment Progress Toward Problem(s) and Goals/Treatment Plan: inpt milieu therapy vital signs clinical observation per protocol and per clinical status prns per unit protocol pt seen by family medicine psychology consult dr delatorre appreciated start aricept 5mg po 5pm and namenda 5mg po 9am access to prn [place] islander speaking staff and or use of translation services discharge planning in progress Estimated Date of D/C: 01/06/18 - Smoking Cessation Smoking Cessation Initiated: No Reason for not providing: pt defers
[2018-01-05] MEDS: Levothyroxine 50 MCG TAB PO SCH (06:37)
--- NOTE | 2018-01-05 07:33 | CP.PCM.PN ---
Subjective - Date & Time of Evaluation Date of Evaluation: 01/05/18 Time of Evaluation: 07:33 - Subjective Subjective: Patient seen and examined at bedside. Awake, alert, cooperative. Reports pain in left ear. Denies drainage from left ear, fever, chills, nausea, vomiting or chest pain. Reports normal urine output, denies dysuria or hematuria. Objective - Vital Signs/Intake and Output Vital Signs (last 24 hours): Temp Pulse Resp BP Pulse Ox 97.8 F 89 18 128/87 100 01/05/18 06:00 01/05/18 06:00 01/05/18 06:00 01/05/18 06:00 12/30/17 19:59 - Medications Medications: Current Medications Acetaminophen (Tylenol 325mg Tab) 650 mg PO Q4 PRN PRN Reason: Pain, moderate (4-7) Al Hydrox/Mg Hydrox/Simethicone (Maalox Plus 30 Ml) 30 ml PO Q4 PRN PRN Reason: Dyspepsia Last Admin: 01/02/18 17:42 Dose: 30 ml Aspirin (Ecotrin) 81 mg PO DAILY [facility] Last Admin: 01/04/18 09:44 Dose: 81 mg Bismuth Subsalicylate (Pepto-Bismol) 524 mg PO Q4 PRN PRN Reason: Diarrhea Levothyroxine Sodium (Synthroid) 50 mcg PO DAILY@0630 [facility] Last Admin: 01/05/18 06:37 Dose: 50 mcg Lorazepam (Ativan) 0.5 mg PO HS PRN PRN Reason: Insomnia Stop: 01/13/18 20:14 Last Admin: 12/31/17 22:09 Dose: 0.5 mg Lorazepam (Ativan) 0.5 mg PO Q6 PRN PRN Reason: Anixety/Agitation Stop: 01/13/18 20:14 Last Admin: 01/03/18 15:55 Dose: 0.5 mg Losartan Potassium (Cozaar) 50 mg PO DAILY [facility] Last Admin: 01/04/18 11:53 Dose: 50 mg Magnesium Hydroxide (Milk Of Magnesia) 30 ml PO HS PRN PRN Reason: Constipation Last Admin: 01/04/18 20:13 Dose: 30 ml Mirtazapine (Remeron) 15 mg PO [facility] Last Admin: 01/04/18 21:01 Dose: 15 mg Multivitamins/Minerals (Therapeutic-M Tab) 1 tab PO DAILY [facility] Last Admin: 01/04/18 09:45 Dose: 1 tab - Labs Labs: 01/03/18 05:30 01/03/18 05:30 - Constitutional Appears: No Acute Distress - Head Exam Head Exam: ATRAUMATIC, NORMOCEPHALIC - Eye Exam Eye Exam: EOMI, PERRL - ENT Exam ENT Exam: Mucous Membranes Moist, Normal External Ear Exam, Normal Oropharynx, TM's Normal Bilaterally - Neck Exam Neck Exam: Full ROM. absent: Lymphadenopathy - Respiratory Exam Respiratory Exam: Clear to Ausculation Bilateral, NORMAL BREATHING PATTERN - Cardiovascular Exam Cardiovascular Exam: REGULAR RHYTHM, +S1, +S2 - GI/Abdominal Exam GI & Abdominal Exam: Soft, Normal Bowel Sounds - Extremities Exam Extremities Exam: Full ROM. absent: Pedal Edema - Neurological Exam Neurological Exam: Alert, Awake, CN II-XII Intact, Normal Gait - Psychiatric Exam Psychiatric exam: Normal Affect, Normal Mood - Skin Skin Exam: Dry, Normal Color, Warm Assessment and Plan - Assessment and Plan (Free Text) Assessment: 77 yr old F admitted for dementia with behavioral disturbances/depression and insomnia with PMHx of HTN, Hypothyroidism, Anxiety, separation anxiety disorder , and dementia. 1) Left ear pain -otoscope exam normal -no periauricular tenderness, afebrile -Tylenol 650mg PO for pain 2) Hypertension -chronic, controlled - continue home medication: Losartan 50 mg PO QD - 12/31/17: lipid panel: triglycerides 66, chol 207, LDL 109, HDL 59,, HbA1c 6.2 3) Hypothyroidism -chronic, controlled -continue home medications: Synthroid 50 mcg PO QD -TSH: 1.58, T3:.91, Free T4: 1.42 4) Dementia with behavioral disturbances, Depression, Insomnia -acute on chronic -management per psych team: start Aricept 5mg PO Q5PM, Namenda 5mg PO QAM, continue Mirtazepine 15mg PO QHS -Lorazepam 0.5 mg PO QHS PRN insomnia, Lorazepam 0.5 PO Q6 PRN anxiety/agitation 5) Hx Reccurent UTI - asymptomatic, recently treated UTI - 12/30/17: U/A: Mod bacteria, negative for Nitate, negative for leukocyte esterase - 12/31/17: gram negative shyanne 50k-100k -no antibotics at this time, will monitor for signs or symptoms 6) DVT prophylaxis - SCD's, patient is ambulating
[2018-01-05] MEDS: Multivitamin With Minerals Tab PO SCH (08:21)
--- NOTE | 2018-01-05 08:46 | PCM.PYCHPN ---
Psychiatric Progress Note - Psychiatric Progress Note Patient seen today, length of contact: Patient evaluated, chart reviewed, case discussed w/ team Patient Chief Complaint: "I'm fine." Problems Identified/Issues Discussed: Patient A x O x 1 due to chronic deficits in dementia. She is currently calm and cooperative w/o behavioral disturbances. She reports that her mood is improving and that she does not currently feel depressed. SW to discuss disposition with family today. Medication Change: No Medical Record Reviewed: Yes Consults ordered or reviewed: Medicine consult Mental Status Examination - Cognitive Function Orientation: Person Memory: Impaired Attention: Poor Concentration: Poor Association: Loose Fund of Knowledge: Poor Decription of patient's judgement and insights: Chronic poor I/J - Mood Mood: Anxious - Affect Affect: Constricted - Speech Speech: Soft - Formal Thought Process Formal Thought Process: Loosening of associations, Circumstantial Psychotic Thoughts and Behaviors: NO AH/VH/paranoia/delusions - Suicidal Ideation Suicidal Ideation: No - Homicidal Ideation Homicidal Ideation: No Goal/Treatment Plan - Goal/Treatment Plan Need for Continued Stay: Remain at risks for inpatient hospitalization, Severe functional impairment Progress Toward Problem(s) and Goals/Treatment Plan: Dementia with behavioral disturbance; Depressive Disorder -Continue Remeron 15 mg PO HS -Start Aricept 5 mg PO HS -Continue to observe for safety and behavioral disturbances -Discuss disposition w/ patient's family -Medicine consult -Individual and group therapy Estimated Date of D/C: 01/06/18
[2018-01-05] MEDS: Alum-Mag Hydrox-Simethicone Susp (30 mL) PO PRN (21:22)
[2018-01-06] MEDS: Levothyroxine 50 MCG TAB PO SCH (06:25)
--- NOTE | 2018-01-06 08:55 | PCM.PYCHPN ---
Psychiatric Progress Note - Psychiatric Progress Note Patient seen today, length of contact: Patient evaluated, chart reviewed, case discussed w/ team Patient Chief Complaint: "I'm fine." Problems Identified/Issues Discussed: Patient A x O x 1 due to chronic deficits in dementia. She is currently calm and cooperative. No acute behavioral issues, but patient does exhibit anxiety at times, likely worsened by her periods of confusion. SW discussed case w/ patient's daughter, who has agreed to take care of the patient. Medication Change: Yes (Start Namenda) Medical Record Reviewed: Yes Consults ordered or reviewed: Medicine consult Mental Status Examination - Cognitive Function Orientation: Person Memory: Impaired Attention: Poor Concentration: Poor Association: Loose Fund of Knowledge: Poor Decription of patient's judgement and insights: Chronic poor I/J - Mood Mood: Anxious - Affect Affect: Constricted - Speech Speech: Soft - Formal Thought Process Formal Thought Process: Loosening of associations Psychotic Thoughts and Behaviors: NO AH/VH/paranoia/delusions - Suicidal Ideation Suicidal Ideation: No - Homicidal Ideation Homicidal Ideation: No Goal/Treatment Plan - Goal/Treatment Plan Need for Continued Stay: Remain at risks for inpatient hospitalization, Severe functional impairment Progress Toward Problem(s) and Goals/Treatment Plan: Dementia with behavioral disturbance; Depressive Disorder -Continue Remeron 15 mg PO HS -Continue Aricept 5 mg PO HS -Start Namenda 5 mg PO Daily -Continue to observe for safety and behavioral disturbances -Medicine consult -Individual and group therapy -Discharge under the care of her family tomorrow Estimated Date of D/C: 01/07/18
[2018-01-06] MEDS: Multivitamin With Minerals Tab PO SCH (09:51)
[2018-01-07 05:43] VITALS: TEMP 97.2
[2018-01-07] MEDS: Levothyroxine 50 MCG TAB PO SCH (05:51)
--- NOTE | 2018-01-07 07:47 | PCM.PYCHDC ---
Mental Status Examination - Mental Status Examination Orientation: Person Memory: Impaired Mood: Neutral Affect: Broad Speech: Appropriate Attention: Poor (Chronic impairments in attention, concentration, associate, knowledge and insight/judgement due to chronic dementia) Concentration: Poor Association: Loose Fund of Knowledge: Poor Formal Thought Process: Loosening of associations Description of patient's judgement and insight: Chronic poor I/J Psychotic Thoughts and Behaviors: NO AH/VH/paranoia/delusions Suicidal Ideation: No Current Homicidal Ideation?: No Discharge Summary - Discharge Note Reason for Hospitalization: As per initial HPI note: pt. reports that came to hospital to do exercise and that these exercises were completed, denies having any known issues at home, reports cleans house and cooks. denies being angry or aggressive. pt denies having any issues with memory. pt. appears to be a poor historian. er notes as well as admitting rn notes reviewed and noted below. ER notes reveal: 77 year old female with a hx of dementia presents to the ED with daughter, who now has power of workers compensation defense attorney over pt, for evaluation of progressively worsening agitation over the last three weeks. As per daughter, patient was here last week for the same behavior and d/c, but the increased aggressive, what she describes as uncontrollable, behavior prompted another visit today. The daughter states that last night patient was unable to sleep and has intermittent complaints of abdominal pain, but they are not consistent. Currently, patient has no physical complaints. 3ns primary rn note ADMISSION NOTE: Received a 77y/o female from the Emergency Room on a stretcher accompanied by her two daughter and ER master motorcycle technician.Pt is oriented only to herself pt thinks that she is her country during the interview "in [facility]" pt unable to state date, time and place. Pt has Power of workers compensation defense attorney with her two daughter on it Holli [phone] and Nohemi Heredia . Pt is German speaking only, bread supervisor was used even though pt has POA so Pt can understand the interview and for unit orientation of the pt, Molly [phone] and Noemí [phone]. Pt was brought in to the emergency by daughter due to significant decline and agitated behavior as per daughter. pt also becoming aggressive towards family member and fearful of being alone. "she is progressively declining but the last 3weeks we couldn't handle her" as per daughter. pt daughter also reporting that pt has poor sleep "she hasn't slept for 36hrs now". pt has a family history of depression and dementia pt was never really diagnosed as per daughter. this is the pts first psychiatric admission, pt is seeing Dr. Ruiz at the [facility]. Pt daughter reports that pt has a medical history of HTN, Hypothyroidism, and Hx. of kidney stones, DM but it was being controlled with diet. pt daughter also report that last week her mother just finished her antibiotic treatment for urinary tract infection. Pt denies any A/V hallucination, denies delusions, denies SI or intent. pt belongings are checked for contraband, nothing was found. Pt initial V/S BP:135/ 75 NE:85 O2SAT 99% @ room air RR:18 T:97.8. Dr Marte was notified about pt admission orders are given, and Dr. Renee called for medical consult [id number] Pt was seen by Dr. Renee. Pt was oriented to the unit and made comfortable at room 307-2. will continue to monitor. records received fron dr Belinda Bolivar MD neurologist saw pt [phone] with impression being Memory change recommendation included brain mri scan and new medications were discussed and deferred Consultations:: List each consultation separately and include: 1. Reason for request. 2. Findings. 3. Follow-up Consultations: Medicine consult Psychology consult: PT is a 77 year old female admitted to [facility] and referred to the process description writer for evaluation. Patient administered the Dementia Rating scale. Deficits in Attention, Conceptulation, Memory, and Initiation were evident. Pt's Construction skills fell within normal limits. PT positive for Confabulation and verbalizations inconsistent with the questions at hand. Overall 100 Memory 12 (Deficient) construction 4 conceptualization 20> Initiation 28> Attention 26> Significant deficits noted on this evaluation Summary of Hospital Course include:: 1. Description of specific treatment plan utilized for patients during their course of treatmen. 2. Summarize the time- course for resolution of acute symptoms and/or regressed behaviors. 3. Describe issues identified and worked on during hospitalization. 4. Describe medication utilized. 5. Describe medical problems identified and treated. 6. Reassessment of suicide risk Summary of Hospital Course: Patient was admitted to the psychiatry unit. Individual and group therapy were provided. Patient was stabilized on Remeron, Aricept and Namenda. She does not have any current behavioral disturbances and was found to have significant neurocognitive deficits on neuropsych testing by psychology consult. Psychoeducation provided to the patient and her family. Patient to be discharged under the care of her daughter. - Diagnosis (1) Dementia with behavioral disturbance Current Visit: Yes Status: Chronic (2) Depressive disorder Current Visit: Yes Status: Chronic - Final Diagnosis (DSM 5) Condition upon Discharge: STABLE DSM 5: Dementia with behavioral disturbances; Depressive Disorder Disposition: HOME/ ROUTINE Follow-up Treatment Plan: Dementia with behavioral disturbance; Depressive Disorder -Continue Remeron 15 mg PO HS -Continue Aricept 5 mg PO HS -Start Namenda 5 mg PO Daily -Continue to observe for safety and behavioral disturbances -Medicine consult -Individual and group therapy -Discharge under the care of her family tomorrow Prescriptions/Medication Reconciliation: Donepezil [Aricept] 5 mg PO HS #30 tab LORazepam [Ativan] 0.5 mg PO Q12 PRN #10 tab PRN Reason: Anixety/Agitation Memantine [Namenda] 5 mg PO DAILY #30 tab Mirtazapine [Remeron] 15 mg PO HS #30 tab - Smoking Cessation Smoking Cessation Medication prescribed: No Reason for not providing: Not indicated - Antipsychotic Medications Pt discharged on 2 or more routine antipsychotic medications: No
[2018-01-07] MEDS: Multivitamin With Minerals Tab PO SCH (08:27)
[2018-01-07 15:45] VITALS: BP 109/55; PULSE 74; RESP 18
== END 2018-01-07 18:00 | disposition home or self-care (01) | DRG 884 ==
LOC: H.ER 14:44 → H.ERHOLD 17:38 → H.STEP 20:04
PROVIDERS: ADMIT Psychiatry & Neurology Psychiatry; ATTEND Psychiatry & Neurology Psychiatry
PROC: GZHZZZZ Group Psychotherapy (ICD-10-PCS; principal; 2017-12-30)
DX: F03.91 Unspecified dementia, unspecified severity, with behavioral disturbance (principal); I10 Essential (primary) hypertension; E03.9 Hypothyroidism, unspecified; G47.00 Insomnia, unspecified; K29.70 Gastritis, unspecified, without bleeding; F41.8 Other specified anxiety disorders; H92.02 Otalgia, left ear; F32.9 Major depressive disorder, single episode, unspecified